=== PATIENT | female | born 1995 | race Caucasian/White ===

== ENCOUNTER 2016-08-11 19:04 | Emergency (ER) | payer OTHER ==
[~2016-08-11] VITALS: Ht 162.6 cm; Wt 49.9 kg
[~2016-08-11 19:04] MED LIST: BACTRIM DS 8001 TAB PO; CIPRO 500MG TA500 MG PO; JUNEL FE 1/20 21 TAB PO; PYRIDIUM100 MG PO
--- NOTE | 2016-08-11 20:17 | ED UPPER/LOWER EXTREMITY COMPL ---
History of Present Illness General Chief Complaint: Shoulder Injury Stated Complaint: SHOULDER PAIN Source: patient Exam Limitations: no limitations Vital Signs & Intake/Output Vital Signs & Intake/Output Vital Signs Date Time Temp Pulse Resp B/P Pulse O2 O2 Flow FiO2 Ox Delivery Rate 08/11 1920 99.4 65 16 100/66 98 Room Air Allergies Coded Allergies: NO KNOWN ALLERGIES (06/11/13) Reconcile Medications Ciprofloxacin (Cipro) 500 MG TABLET 1 TAB PO BID INFECTION NORETHINDRONE-E.ESTRADIOL-IRON (Junel Fe 1 MG-20 Mcg Tablet) 1 MG-20 MCG (21)/75 MG (7) TABLET 1 TAB PO DAILY CONTROL (Reported) Triage Note: RECEIVED 21 YO FEMALE C/O RIGHT SHOULDER PAIN AND UNABLE TO LIFT RIGHT ARM. PT FELL ON RIGHT SHOULDER YESTERDAY WALKING HER DOG. ABRASION NOTED Triage Nurses Notes Reviewed? yes Onset: Abrupt Duration: constant Timing: recent history Severity: moderate Severity Numbers: 5 : No Patient currently breastfeeds: No HPI: Patient is a 21-year-old female who presents emergency room stating that yesterday she was walking her dog on a leash with her right upper extremity with a dog subsequently ran off which pulled patient to the ground resulting acute onset of right shoulder pain in the skin abrasion to the posterior aspect of her shoulder. No head strike occurred patient states that shoulder movements make worse. Tetanus is unknown. Patient is right arm dominant. Denies any head strike. Denies any elbow pain. Patient has been taking Motrin for pain with improvement. Past History Travel History Traveled to [place] past 21 day No Medical History Any Pertinent Medical History? 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 No Review of Systems Review of Systems Constitutional: Reports: no symptoms. EENTM: Reports: no symptoms. Respiratory: Reports: no symptoms. Cardiovascular: Reports: no symptoms. Gastrointestinal/Abdominal: Reports: no symptoms. Genitourinary: Reports: no symptoms. Musculoskeletal: Reports: see HPI, joint pain. Skin: Reports: see HPI. Neurological/Psychological: Reports: no symptoms. Hematologic/Endocrine: Reports: no symptoms. Immunological: Reports: no symptoms. All Other Systems: Reviewed and Negative Physical Exam Physical Exam General Appearance: no apparent distress, comfortable Neurologic/Tendon: normal sensation, normal motor functions, normal tendon functions, responds to pain, no evidence tendon injury Skin: intact, normal color, warm/dry Comments: Well-developed well-nourished no apparent distress. HEENT: Atraumatic, extraocular motion intact Neck: Supple, no lymphadenopathy Back: Nontender Respiratory: No respiratory distress Extremities: Right shoulder noted acromioclavicular point tenderness and mild localized swelling Decreased active range of motion noted with 90 of flexion and abduction. Skin abrasion noted to scapular region skin intact no active bleeding Right upper extremity dermatomes intact Right elbow nontender full active range of motion Neuro: Alert and oriented x3 Psych: Mood affect normal, normal memory normal judgment. Progress Differential Diagnosis: arterial insufficiency, compartment syndrome, contusion, dislocation, DVT, fracture, gout, septic arthritis, sprain, tendon injury Plan of Care: Orders Procedure Date/time Status Durable Medical Equipment 08/11 2025 Active X-rays showed concerns of acromioclavicular sprain Shoulder immobilizer was placed pre-and post-neurovascular was intact. The skin abrasion site was cleaned with peroxide water and bacitracin and Telfa pad were applied Patient was strongly advised to follow-up with orthopedic doctor if no better. Upon discharge patient looks well no apparent distress and will comply with discharge instructions and had no patient (MAICO GRANT,NATE) Diagnostic Imaging: Viewed by Me: Radiology Read. Radiology Impression: SEE COMMENTS Comments: PATIENT: GERRY VALLADARES PRESENT AGE: 21 PATIENT ACCOUNT NO: [id number] : 95 LOCATION: [facility] ORDERING PHYSICIAN: NATE GRANT SERVICE DATE: 08/11/16 EXAM TYPE: RAD - XRY-SHOULDER COMPLETE-RIGHT EXAMINATION: XR SHOULDER, RIGHT CLINICAL INFORMATION: Right shoulder pain and loss of range of motion. Rule out fracture. COMPARISON: None TECHNIQUE: AP external rotation, Grashey, scapular Y, and axillary views of the right shoulder. FINDINGS: No acute fracture or dislocation is seen. The glenohumeral and acromioclavicular articulations are normal. The imaged lungs are clear. There is soft tissue swelling superficial to the right acromioclavicular joint. IMPRESSION: No acute osseous abnormality or dislocation. Soft tissue thickening/swelling overlying the acromioclavicular joint may be due to mild injury. Correlate with physical exam findings. Departure Departure Disposition: HOME OR SELF CARE Condition: Stable Clinical Impression Primary Impression: Sprain of left shoulder Secondary Impressions: Acromioclavicular sprain, Skin abrasion Referrals: ANA MOSLEY,ISAAK Olguin (PCP/Family) NORY SOOD MD Additional Instructions: As discussed BEGIN icing the area directly 20 minutes every 2 hours began over- the-counter ibuprofen for pain and inflammation. If no better in 5 days follow-up with orthopedic Nory Sood MD. Begin THE use of a shoulder mobilizer UNTIL YOU CAN move the arm without pain. Begin applying bacitracin to area for the next 5 days if you note signs of infection redness, pain, swelling, discharge return to emergency room Departure Forms: Customer Survey General Discharge Information
--- NOTE | 2016-08-11 20:37 | RADIOLOGY REPORT ---
EXAMINATION: XR SHOULDER, RIGHT CLINICAL INFORMATION: Right shoulder pain and loss of range of motion. Rule out fracture. COMPARISON: None TECHNIQUE: AP external rotation, Grashey, scapular Y, and axillary views of the right shoulder. FINDINGS: No acute fracture or dislocation is seen. The glenohumeral and acromioclavicular articulations are normal. The imaged lungs are clear. There is soft tissue swelling superficial to the right acromioclavicular joint. IMPRESSION: No acute osseous abnormality or dislocation. Soft tissue thickening/swelling overlying the acromioclavicular joint may be due to mild injury. Correlate with physical exam findings.
[2016-08-11 21:01] VITALS: BP 102/67
== END 2016-08-11 21:01 ==
LOC: ERH 19:04
DX: S43.401A Unspecified sprain of right shoulder joint, initial encounter (principal); S43.51XA Sprain of right acromioclavicular joint, initial encounter; S40.211A Abrasion of right shoulder, initial encounter; X58.XXXA Exposure to other specified factors, initial encounter; Y93.K1 Activity, walking an animal; Y92.9 Unspecified place or not applicable
CPT/HCPCS: 73030-RT; 90471; 90714

== ENCOUNTER 2017-11-28 12:59 | Emergency (ER) | payer OTHER ==
[~2017-11-28 12:59] MED LIST changes: +CIPRO500 M1 PO; +FLOMAX0.4 M1 PO; +IBUPROFEN800 M1 PO; +PERCOCET 5-3251 EACH PO; +ZOFRAN ODT4 M1 SL
[2017-11-28] MEDS ORDERED: MICORT-HC28.4 GM TOP (16:03)
[2017-11-28] MEDS ORDERED: LIDOCAINE HCL V15 ML PO (16:03)
--- NOTE | 2017-11-28 16:04 | ED GI/GU/ABDOMINAL COMPLAINT ---
History of Present Illness General Chief Complaint: General Adult Stated Complaint: POSSIBLE HEMEROID? Source: patient Exam Limitations: no limitations Vital Signs & Intake/Output Vital Signs & Intake/Output Vital Signs Date Time Temp Pulse Resp B/P B/P Pulse O2 O2 Flow FiO2 Mean Ox Delivery Rate 11/28 1617 98.4 76 18 122/85 98 Room Air 11/28 1308 97.3 83 16 117/79 98 Room Air Allergies Coded Allergies: NO KNOWN ALLERGIES (06/11/13) Triage Note: PT TO ED WITH C/O RECTAL BUMP, BELIEVES TO BE A HEMMORHOID. STATES SHE IS 33 WEEKS AND TAKING IRON PILLS. ON/OFF CONSTIPATION. DENIES ANY RECTAL BLEEDING. DENIES ABD PAIN. Triage Nurses Notes Reviewed? yes ? Y Is pt currently ? No Onset: Gradual Duration: getting worse Quality/Severity: burning Radiation: no radiation HPI: Patient is a 22-year-old female who is approximately 33 weeks who presents emergency room with concerns of a five-day history of gradually worsening swollen tender region to her rectum where she believes that she has a external hemorrhoid however no bleeding has occurred Denies any fever chills abdominal pain nausea vomiting dysuria hematuria and is otherwise without complaints. Patient can tolerate by mouth (Osmel GARNT,Cruz) Reconcile Medications Ciprofloxacin (Cipro) 500 MG TABLET 1 TAB PO BID INFECTION Ciprofloxacin HCl (Cipro) 500 MG TABLET 1 TAB PO BID pyelo Hydrocortisone Acetate (Micort-Hc) 2.5 % CREAM.APPL 1 HEATHER TOP TID PRN INFLAMMATION/HEMORRHOIDS Ibuprofen 800 MG TABLET 1 TAB PO TID pain Lidocaine (Anecream5) 5 % CREAM..G. 1 HEATHER TOP TID PRN HEMORRHOIDS Lidocaine HCl (Lidocaine HCl Viscous) 2 % SOLUTION 15 ML PO 4 TIMES/DAY PAIN/ HEMORRHOIDS NORETHINDRONE-E.ESTRADIOL-IRON (Junel Fe 1 MG-20 Mcg Tablet) 1 MG-20 MCG (21)/75 MG (7) TABLET 1 TAB PO DAILY CONTROL (Reported) Ondansetron (Zofran Odt) 4 MG TAB.RAPDIS 1 TAB SL TID nausea Oxycodone HCl/Acetaminophen (Percocet 5-325 MG Tablet) 5 MG-325 MG TABLET 1-2 TAB PO Q6P PRN pain Tamsulosin HCl (Flomax) 0.4 MG CAP.ER.24H 1 CAP PO DAILY stone (Raudel AGUIRRE,Jace Olson) Past History Travel History Traveled to [place] past 21 day No Medical History Any Pertinent Medical History? 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 No (Cruz Sanchez) Review of Systems Review of Systems Constitutional: Reports: no symptoms. EENTM: Reports: no symptoms. Respiratory: Reports: no symptoms. Cardiovascular: Reports: no symptoms. GI: Reports: no symptoms. Genitourinary: Reports: see HPI. Musculoskeletal: Reports: no symptoms. Skin: Reports: no symptoms. Neurological/Psychological: Reports: no symptoms. Hematologic/Endocrine: Reports: no symptoms. Immunologic/Allergic: Reports: no symptoms. All Other Systems: Reviewed and Negative (Cruz Sanchez) Physical Exam Physical Exam General Appearance: no apparent distress, alert, comfortable Head: atraumatic Eyes: Bilateral: normal appearance. Ears, Nose, Throat, Mouth: moist mucous membrane Respiratory: chest non-tender, no respiratory distress Cardiovascular: regular rate/rhythm Gastrointestinal: normal bowel sounds, soft, non-tender Rectal: 2 cm nonthrombosed tender external hemorrhoid with no active bleeding no surrounding fluctuance or induration for concerns of perirectal abscess Extremities: normal range of motion Neurologic/Psych: no motor/sensory deficits, awake, alert, oriented x 3 Skin: intact Core Measures ACS in differential dx? No Sepsis Present: No Sepsis Focused Exam Completed? No (Cruz Sanchez) Progress Differential Diagnosis: appendicitis, biliary colic, bowel obstruction, cholecystitis, diverticulitis, ectopic , endometritis, esophageal varices, gastritis, hepatitis, hernia, hemorrhoids, ischemic bowel, intrauterine , pancreatitis, PID/cervicitis, peptic ulcer, PUD/GERD, perforated viscous, threatened AB, UTI/pyelo Plan of Care: Orders Procedure Date/time Status Lynn, Insertion/Removal/Asses 11/28 1617 Active CULTURE,URINE 11/28 1617 Active URINALYSIS 11/28 1617 Active Microbiology 07/30 1618 URINE ROUT: Urine Culture - ORD Differential diagnosis include external hemorrhoid internal hemorrhoid perirectal abscess There is noted nonthrombosed hemorrhoid on exam discussed disposition plan with patient who agrees and has no questions patient has no abdominal complaints or concerns of compromise Initial ED EKG: none (Cruz Sanchez) Departure Departure Disposition: HOME OR SELF CARE Condition: Stable Clinical Impression Primary Impression: External hemorrhoid Referrals: Tye Jose DO,Refugio Miranda Unknown (PCP/Family) Additional Instructions: As discussed begin the prescription of viscous lidocaine and begin the prescription hydrocortisone cream as directed, prescriptions waiting a [facility]. If no better on Tuesday follow-up with colorectal surgeon Dr. Gamble. If symptoms worsen return to emergency room Departure Forms: Customer Survey General Discharge Information (Cruz Sanchez) Departure Prescriptions: Current Visit Scripts Hydrocortisone Acetate (Micort-Hc) 1 HEATHER TOP TID PRN INFLAMMATION/HEMORRHOIDS #1 TUBE Lidocaine HCl (Lidocaine HCl Viscous) 15 ML PO 4 TIMES/DAY #100 ML Lidocaine (Anecream5) 1 HEATHER TOP TID PRN HEMORRHOIDS #1 TUBE PA/DJANGO DEVELOPER Co-Sign Statement Statement: ED Attending supervision documentation- [X] I saw and evaluated the patient. I have also reviewed all the pertinent lab results and diagnostic results. I agree with the findings and the plan of care as documented in the PA's/DJANGO DEVELOPER's documentation. [] I have reviewed the ED Record and agree with the PA's/DJANGO DEVELOPER's documentation. [] Additions or exceptions (if any) to the PAs/DJANGO DEVELOPER's note and plan are summarized below: [] (Jace Starks DO
[2017-11-28 16:17] VITALS: BP 122/85
[2017-11-28] MEDS ORDERED: ANECREAM515 GM TOP (17:28)
== END 2017-11-28 16:18 ==
LOC: ERH 12:59
DX: O99.613 Diseases of the digestive system complicating pregnancy, third trimester (principal); K64.4 Residual hemorrhoidal skin tags; Z3A.33 33 weeks gestation of pregnancy
CPT/HCPCS: 87086